=== PATIENT | male | born 1950 | race Caucasian/White ===

== ENCOUNTER → 2020-08-28 | Outpatient (CLI) | payer OTHER, MEDICARE ==
[~2020-08-28] VITALS: Ht 180.3 cm; Wt 90.7 kg
[~2020-08-28] MED LIST: ASA81BEC PO; FISH OIL 1,001000 M3 PO; LEVOTHYROXINE88 MC1 PO; OXYBUTYNIN 5 MG5 M2 PO; PRAVACHOL40 MG PO; RAPAFLO8 MG PO; RELAFEN750 M1 PO; SUPER THERAVIT1 EACH PO
--- NOTE | ~2020-08-28 | HPC ---
[facility] [address] [address] PAIN MANAGEMENT CONSULTATION Name: ROMAN LINARES Room #: REG FRIDA Reema#: [id number] Admission: 08/28/20 Attend Phys: Mahendra Chadwick DO Discharge: Date of : 46 Report #: [id number] THIS REPORT FOR: cc: Poonam Bruce MD, Janice K. MD Johnson, James E. DO ~ DATE OF SERVICE: 08/28/2020 REFERRING NEUROSURGEON: Dr. Corey Lopez with [facility] CHIEF COMPLAINT: Low back pain, right buttock and posterolateral thigh pain. HISTORY OF PRESENT ILLNESS: As you know, the patient is a very pleasant 70-year-old male who has had a longstanding history of ongoing low back pain, right buttock pain. The patient states pain began on 01/14/2014. He denied injury or trauma that may have led to symptom development. The patient has had extensive fusion surgery to address ongoing low back and lower extremity pain issues. He has had a fusion from T12 to L4 by Dr. Rashid Blackwell after falling down stairs at his home. Unfortunately, even after that surgery, he continues to experience symptoms. He has sought evaluation with Neurosurgery who advised a more conservative treatment approach and that surgical option should not be entertained. He then was seen at pain service where he has undergone lumbar epidural injections under fluoroscopic guidance, intra-articular facet injections and SI joint injections without improvement in symptoms. His most recent injection in the SI joint was done approximately 1 year ago. He continues to participate in formalized physical therapy sought further evaluation with Dr. Corey Lopez, a neurosurgeon who is new to our area, previously practicing in [place]. After evaluation of the patient's case, the patient was advised to trial conservative treatment including either SI joint injections or possible spinal cord stimulator trial. He has been referred to our service to discuss those options. The patient reports today his pain is periodic. He describes the pain as aching, places current pain score 1/10, daily average at 1/10, worst pain has been is 8/10. The patient states his pain is exacerbated with standing and walking, improves with sitting down. The patient is able to localize pain directly over the back in a band-like fashion consistent with facet arthropathy at L4-L5 and L5-S1, but also is experiencing right buttock and posterolateral thigh pain, which is more consistent with lumbar radiculopathy. The patient has been referred to our service by his neurosurgeon to discuss treatment options. PAST MEDICAL HISTORY: 1. Hypertension. 2. Thyroid disease. 3. Chronic low back pain, status post fusion. [address] [address] PAIN MANAGEMENT CONSULTATION Name: LINARESROMAN Room #: REG FRIDA Benavidez#: [id number] Admission: 08/28/20 Attend Phys: Mahendra Chadwick DO Discharge: Date of : 46 Report #: [id number] 4. Dyslipidemia. 5. Neurogenic bladder. 6. Osteoarthritis. PAST SURGICAL HISTORY: Spinal fusion in 2014 from T12 to L4. SOCIAL HISTORY: The patient denies tobacco, IV or illicit drug use. Admits to 1 alcohol beverage per day. He is retired, retiring about 6 years ago. He is not receiving workmen's compensation nor is he trying to obtain discrete benefits. He is not in litigation in regards to pain. He is unaccompanied at today's visit. REVIEW OF SYSTEMS: Positive for wearing corrective eyewear, cataracts, nocturia, frequent urination, change of force or stream urination, neurogenic bladder, tremors, chronic low back pain, and thyroid disease. All other review of systems negative per 12-point review of systems other than those listed in history of present illness. ALLERGIES: No known drug allergies. CURRENT MEDICATIONS: Nabumetone 500 mg twice a day, oxybutynin 5 mg once a day, levothyroxine 88 mcg per day, Rapaflo 8 mg once a day, pravastatin 40 mg per day, omega-3 fish oil 1 tab per day, aspirin 81 mg per day, multivitamin 1 tab per day. IMAGING: MRI of the lumbar spine obtained on 04/09/2020 shows T12-L1 unremarkable, L1-L2 shows mild facet arthrosis, mild right foraminal narrowing. L2-L3 shows retropulsion of the inferior endplate of L2 resulting in mild impression upon the thecal sac. Facet hypertrophy is moderate. Foraminal stenosis is moderate bilaterally. L3-L4, minimal disk osteophyte complex, facet arthrosis and moderate bilateral foraminal stenosis, mild bilaterally at L4-L5, small posterior disk bulge, facet arthrosis that is severe bilaterally. Facet osteophytosis resulting in mild central canal stenosis. Foraminal stenosis is moderate to severe in the right and moderate left. L5-S1, moderate posterior disk bulge, facet arthrosis, severe in nature, [id number] central canal narrowing, mostly due to facet hypertrophy, foraminal stenosis is moderate. PQRS: The patient has known arthritic changes of the lumbar spine, bilateral knees and right ankle. No rheumatoid arthritis. He is placing pain intensity today 1/10. He is not a fall risk, has not had a fall in last 3 months, not on blood thinners, but is treated for hypertension. He is not on chronic opioids, has a low opiate addiction potential. Pain impact is 32/70, moderate interference of daily activities secondary to pain. PHYSICAL EXAMINATION: VITAL SIGNS: Blood pressure 132/71, pulse 71, respiratory rate 16 and [facility] [address] [place] [address] PAIN MANAGEMENT CONSULTATION Name: ROMAN LINARES Room #: REG [facility].#: [id number] Admission: 08/28/20 Attend Phys: Mahendra Chadwick DO Discharge: Date of : 46 Report #: [id number] unlabored. The patient is 100% on room air. Height 5 feet 11 inches tall, weight 200 pounds, BMI calculated 27.9. GENERAL: Well-developed, well-nourished, well-hydrated 70-year-old male appearing stated age. He is in no acute distress, awake, alert and oriented x 3. Current pain score is rated at 1/10. HEENT: Normocephalic, atraumatic. Pupils equal, round and reactive. Extraocular muscles are intact. The patient is wearing a mask in compliance with COVID-19 regulations. LUNGS: Clear, no wheeze, rhonchi or rales. CARDIOVASCULAR: Regular. No appreciable gallop, no rub. ABDOMEN: Soft, nontender, nondistended, normoactive bowel sounds. EXTREMITIES: Show no clubbing, no cyanosis. No appreciable edema. MUSCULOSKELETAL: Lower extremity strength equal and symmetrical 5/5, intact to light touch from L1 through S2 dermatomes. Seated straight leg raising negative. Supine straight leg raising negative. Marsha's test is negative. Modified Gaenslen's positive for axial low back pain. Ankle clonus negative. Babinski is negative. Well-healed surgical scars over the lower lumbar spine. Deep tendon reflexes are equal and symmetrical at the patella and Achilles, 2+/4. There are palpatory tenderness noted over the paraspinal musculature of lower lumbar spine, moderate tenderness over the right sacroiliac joint, negative left. There is also noted tenderness with deep palpation over the sciatic notch on the right, negative left. ASSESSMENT: 1. Post-laminectomy syndrome. 2. Chronic lumbar radiculopathy. 3. Facet arthropathy of the lumbar spine. 4. Lumbosacral spondylosis without current radicular symptoms. 5. 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 PLAN: 1. Based on today's physical exam and history the patient has provided, the description the patient uses in regards to pain as well as location of symptoms, it would appear he is suffering from 3 distinct pain generators, the first of the generator appears to be the facet joints at L4-L5 and L5-S1 consistent with the band-like pain radiating across the lower lumbar spine with correlation to provocating testing of modified Gaenslen's and lateral and rotational movements. This generates the patient's typical low back symptoms. The second pain generator appears to be the right SI joint, though this appears to be a minimal promoter of symptoms at this visit. He is also experiencing radicular symptoms radiating to the right buttock area with pain in and around the sciatic notch on the right. Deep palpation in area causes pain intensification consistent with lumbar radiculopathy. We have discussed with the patient the findings of his MRI and the complicated surgeries that might be necessary. We also discussed other treatment options with the patient today following discussed with the patient. [facility] [address] [facility] [place] [address] PAIN MANAGEMENT CONSULTATION Name: ROMAN LINARES Room #: REG FRIDA Benavidez#: [id number] Admission: 08/28/20 Attend Phys: Mahendra Chadwick DO Discharge: Date of : 46 Report #: [id number] We discussed physical therapy, stretching exercises and core strengthening, for which the patient is currently engaged and we encouraged the patient to continue this therapy. We discussed medication management adding neuropathic medications and a consistent nonsteroidal anti-inflammatory to help with symptom control. We discussed with the patient's injection therapies, which would include possible repeat lumbar epidural injection to address lumbar radicular symptoms. We discussed facet injections, medial branch nerve blocks and radiofrequency lesioning to address facet arthropathy pain in the lower lumbar spine. We also discussed right sacroiliac joint injections to address right sacroiliac joint dysfunction. The patient is resistant to initiate injection therapies as he underwent those injections last year and reported no benefit for any of the procedures. We also then discussed spinal cord stimulator therapy as an option. After reviewing the risks and benefits of all proposed treatment options, the patient chose to move forward with a spinal cord stimulator trial implantation. 2. The patient was given information to follow up with Psychiatry in regards to the spinal cord stimulator trial implantation. This is a Medicare guideline. The patient has to complete before we can determine if he is an appropriate candidate. He must be shown to be a candidate from a psychiatric standpoint. The patient will undergo psychiatric evaluation as quickly as possible. We have sent the patient to the psychiatrist in the area that are adept at providing this evaluation. He will contact any of the physicians on the list make an appointment and undergo evaluation. Once he has completed this evaluation is to contact our clinic so that we can look for the results assuming he has no psychopathology concerning for undergoing the procedure. We will then begin the scheduling process. The patient will contact our clinic once he has made his appointment and undergo the evaluation. 3. No medication changes made at today's visit. The patient will continue current medical therapy as prior prescribed. 4. We plan to see the patient back in followup visit once he has completed his psychiatric evaluation, we will review those findings. If he is shown to have no psychopathology concerning for undergoing the procedure and he appears to be an appropriate candidate from a psychiatric standpoint, we will then begin the process of scheduling the trial implantation. I will expedite this process as quickly as possible. 5. We wish to thank Dr. Corey Lopez with [facility] for the opportunity to see this patient in consultation. We will keep you apprised of his response to treatment as we address lumbar radicular symptoms, facet arthropathy pain and right sacroiliac joint pain. Again, we wish to thank you for the opportunity to see this patient in consultation. By: [id number] Mahendra Chadwick DO /nt
[2020-08-28 14:27] VITALS: BP 132/71
--- NOTE | 2020-08-28 14:38 | NUR ---
Pain Clinic Assessment: 1. History of Osteoarthritis: SPINE KNEES RIGHT ANKLE History of Rheumatoid Arthritis: Not Applicable 2. Height: 5 ft. 11 in. 180.3 cm. Weight: 200.0 lb. oz. 90.720 kg. Patient's BMI: 27.9 3. Vital Signs: BP: 132/71 Pulse: 71 Resp: 16 Temp: 02 Sat: 100 ECG Mon: 4. Pain Intensity: 1 5. Fall Risk: Dizziness: N Needs help standing or walking: N Fallen in the last 3 months: N Fall risk comments: 6. Patient on Blood Thinner: None 7. History of Hypertension: Y 8. Opioid Therapy greater than 6 weeks: N Opiate Contract Signed: 9. Risk Assessment Tool Provided: 1-LOW 10. Functional Assessment Tool: 11. Recreational Drug Use: Never Drug Type: Tobacco Use: Former Smoker Tobacco Type: Amount or Packs/day: How Many Years: Alcohol Use: Yes Frequency: Weekly Quant: 8
== END ==
LOC: PAIN 06:58
PROVIDERS: ATTEND Anesthesiology Pain Medicine
DX: M51.16 Intervertebral disc disorders with radiculopathy, lumbar region (principal); M96.1 Postlaminectomy syndrome, not elsewhere classified; M79.651 Pain in right thigh; E78.5 Hyperlipidemia, unspecified; M19.90 Unspecified osteoarthritis, unspecified site